=== PATIENT | male | born 1965 ===

== ENCOUNTER 2018-04-14 17:44 | Emergency (ER) | payer OTHER, SELFPAY ==
[2018-04-14] MEDS ORDERED: Absorbable Gelatin Sponge Size 12-7 ONE (18:10)
--- NOTE | 2018-04-14 18:40 | ED PDOC ---
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 Patient states he was in the shower when it happened and is concerned that he lost a significant amount of blood. He denies dizziness, weakness, syncope, pain to legs, falls, prior history of bleeding issues, or any other medical complaints. PMD: none provided Past Medical History Reviewed: Historical Data, Nursing Documentation, Vital Signs Vital Signs: Last Vital Signs Temp 99.2 F 04/14/18 17:46 Pulse 101 H 04/14/18 17:46 Resp 18 04/14/18 17:46 BP 125/87 04/14/18 17:46 Pulse Ox 98 04/14/18 18:46 - Medical History PMH: No Chronic Diseases - Surgical History Surgical History: No Surg Hx - Family History Family History: States: Unknown Family Hx - Allergies Allergies/Adverse Reactions: Allergies Allergy/AdvReac Type Severity Reaction Status Date / Time No Known Allergies Allergy Verified 04/14/18 17:46 Review of Systems ROS Statement: Except As Marked, All Systems Reviewed And Found Negative Cardiovascular: Negative for: Chest Pain Respiratory: Negative for: Shortness of Breath Musculoskeletal: Positive for: Other (varicose vein break). Negative for: Leg Pain Skin: Negative for: Rash Neurological: Positive for: Other (no syncope). Negative for: Weakness, Dizziness Physical Exam - Reviewed Nursing Documentation Reviewed: Yes Vital Signs Reviewed: Yes - Physical Exam Appears: Positive for: Well Skin: Positive for: Normal Color, Warm, Dry. Negative for: Pallor Eye Exam: Positive for: Normal appearance Cardiovascular/Chest: Positive for: Regular Rate, Rhythm. Negative for: Murmur , Tachycardia Respiratory: Positive for: Normal Breath Sounds. Negative for: Respiratory Distress Gastrointestinal/Abdominal: Positive for: Normal Exam, Soft. Negative for: Tenderness Extremity: Positive for: Normal ROM (upper and lower), Other (left leg posterior thigh small varicosities superficial, no active bleeding, some dry blood to calf and knee, patient requesting blood work due to fear of blood loss) . Negative for: Pedal Edema, Deformity Neurologic/Psych: Positive for: Alert, Oriented (x3), Other (patient is able to move all extremities, speech is clear) - Laboratory Results Result Diagrams: 04/14/18 18:45 04/14/18 18:45 - ECG O2 Sat by Pulse Oximetry: 98 (RA) Pulse Ox Interpretation: Normal Medical Decision Making Medical Decision Making: Time: 1817 --Get CBC to reassure patient, surgical placed on varicosities. Monitor bleeding for 45 min and provide reassurance. Time: 1909 --Patient reevaluated, no active bleeding, hemoglobin is normal. Patient will keep yulia bandage on overnight and remove in the morning. Precautions necessary for varicose veins were discussed at length with patient. Scribe Attestation: Documented by Keesha Pleitez, acting as a scribe for Joel Jennings III, DO Provider Scribe Attestation: All medical record entries made by the Scribe were at my direction and personally dictated by me. I have reviewed the chart and agree that the record accurately reflects my personal performance of the history, physical exam, medical decision making, and the department course for this patient. I have also personally directed, reviewed, and agree with the discharge instructions and disposition Disposition - Clinical Impression Clinical Impression: Bleeding from varicose vein - Disposition Referrals: [facility] [Outside] Disposition Time: 19:15 Condition: IMPROVED Additional Instructions: Do not take motrin, alleve, ibuprofen or aspirin for next 5 days. Use tramadol for back pain if needed. Avoid trauma or scrubbing the areas of your varicose veins. See surgeon for followup and definitive care. If bleeding returns, elevate leg and apply pressure for 20minutes. If bleeding persists return to ER. Instructions: Treatment of Varicose Veins of the Leg Forms: [employer] (Lithuanian) Print Language: ENGLISH
[2018-04-14 18:56] LABS: BASO % 0.7 % (0.0-2.0); EOS # 0.2 K/uL (0.0-0.7); EOS % 2.9 % (0.0-4.0); HEMOGLOBIN 13.7 g/dL (12.0-18.0); LYMPH # 2.3 K/uL (1.0-4.3); LYMPH % 36.2 % (20.0-40.0); MEAN CELL VOLUME 94.5 fl (80.0-94.0); MEAN CORPUSCULAR HEMOGLOBIN 32.2 pg (27.0-31.0); MONO # 0.6 K/uL (0.0-0.8); MONO % 9.1 % (0.0-10.0); NEUT # 3.3 K/uL (1.8-7.0); NEUT % 51.1 % (50.0-75.0); NRBC % 0.1 % (0.0-0.0); RBC 4.28 Mil/uL (4.40-5.90); RED CELL DISTRIBUTION WIDTH 13.9 % (11.5-14.5); WHITE BLOOD COUNT 6.4 K/uL (4.8-10.8)
[2018-04-14 18:58] LABS: BLOOD UREA NITROGEN 16 mg/dl (9-20); CALCIUM 9.2 mg/dL (8.4-10.2); GFR NON-AFRICAN AMERICAN > 60
[2018-04-14 19:46] VITALS: BP 137/93; PULSE 84; RESP 16; TEMP 98.1; O2SAT 96
== END 2018-04-14 20:12 | disposition home or self-care (01) ==
LOC: H.ER 17:44
DX: S85.9 Injury of unspecified blood vessel at lower leg level (principal); Y93.E1 Activity, personal bathing and showering

== ENCOUNTER 2018-06-11 11:01 | Emergency (ER) | payer OTHER, SELFPAY ==
[2018-06-11 11:23] VITALS: BMI 40.1
[2018-06-11 11:24] VITALS: BP 125/85; PULSE 80; RESP 20; TEMP 98.2; O2SAT 98
--- NOTE | 2018-06-11 12:41 | ED PDOC ---
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 Pt has had pain in his knees for a long time. Additionally, for the past two days, pt also notes intermittent swelling to the knee and lower leg. Pt is expressing concern over his varicose veins. No recent immobilization/travel/surgery or history of malignancy. Otherwise, denies hx of blood clots, fever, chills, redness, bruising, weakness, numbness, paresthesias, urinary symptoms, back pain. PMD: none provided Past Medical History Reviewed: Historical Data, Nursing Documentation, Vital Signs Vital Signs: Last Vital Signs Temp 98.2 F 06/11/18 11:23 Pulse 80 06/11/18 11:23 Resp 20 06/11/18 11:23 BP 125/85 06/11/18 11:23 Pulse Ox 98 06/11/18 11:23 - Medical History PMH: Denies: Chronic Kidney Disease Other PMH: varicose veins - Surgical History Surgical History: No Surg Hx - Family History Family History: States: Unknown Family Hx - Social History Current smoker - smoking cessation education provided: No Alcohol: Social Drugs: Denies - Home Medications Home Medications: Ambulatory Orders Medication Instructions Recorded Naproxen 500 mg PO Q12H PRN #30 tablet 06/11/18 - Allergies Allergies/Adverse Reactions: Allergies Allergy/AdvReac Type Severity Reaction Status Date / Time No Known Allergies Allergy Verified 06/11/18 11:42 Review of Systems ROS Statement: Except As Marked, All Systems Reviewed And Found Negative Constitutional: Negative for: Fever, Chills Cardiovascular: Negative for: Chest Pain, Palpitations Respiratory: Negative for: Cough Gastrointestinal: Negative for: Nausea, Vomiting, Abdominal Pain Genitourinary Male: Negative for: Dysuria, Frequency Musculoskeletal: Positive for: Leg Pain (right knee radiating up into hip). Negative for: Neck Pain, Shoulder Pain, Arm Pain Skin: Positive for: Other (varicose veins bilateral lower extremities). Negative for: Rash Neurological: Negative for: Weakness, Numbness, Headache, Dizziness Physical Exam - Reviewed Nursing Documentation Reviewed: Yes Vital Signs Reviewed: Yes - Physical Exam Appears: Positive for: Well, Non-toxic, No Acute Distress Head Exam: Positive for: ATRAUMATIC, NORMOCEPHALIC Skin: Positive for: Normal Color, Warm, Dry Eye Exam: Positive for: Normal appearance Cardiovascular/Chest: Positive for: Regular Rate, Rhythm Respiratory: Positive for: Normal Breath Sounds. Negative for: Accessory Muscle Use, Respiratory Distress Pulses-Dorsalis Pedis (L): 2+ Pulses-Dorsalis Pedis (R): 2+ Back: Positive for: Normal Inspection. Negative for: L CVA Tenderness, R CVA Tenderness, Vertebral Tenderness, Muscle Spasm Extremity: Positive for: Normal ROM, Tenderness (to right leg knee over the medial and lateral joint lines and the popliteal fossa), Capillary Refill (<2s), Other (bilat inspection LE: varicose veins present; left leg normal). Negative for: Pedal Edema, Calf Tenderness, Deformity, Swelling Neurologic/Psych: Positive for: Alert, Oriented (x3), Gait (steady). Negative for: Motor/Sensory Deficits - ECG O2 Sat by Pulse Oximetry: 98 (RA) Pulse Ox Interpretation: Normal Medical Decision Making Medical Decision Making: Time: 1226 Initial Impression: right leg pain, r/o DVT Initial Plan: --Right knee XR --Toradol 60mg IM --Right LE US duplex Venous Duplex: Negative for DVT Right Knee XR: Negative Pt reports decreased pain after medication. Plan of care discussed with patient, and strict instructions given regarding prescriptions given, importance of follow up, and signs to return to Emergency Department, to include numbness, paresthesias, weakness, worsening pain or any other new/worsening symptoms. Patient verbalizes understanding of discussion. Patient A&Ox3, ambulating with steady gait, stable for discharge home. Impression: Knee Pain Plan: * Naproxen * Orthopedic Followup * Followup with primary doctor/clinic within 2 days * Return to ER for new/worsening symptoms Scribe Attestation: Documented by Jess Johnson, acting as a scribe for Sydney Brooks PA-C Provider Scribe Attestation: All medical record entries made by the Scribe were at my direction and personally dictated by me. I have reviewed the chart and agree that the record accurately reflects my personal performance of the history, physical exam, medical decision making, and the department course for this patient. I have also personally directed, reviewed, and agree with the discharge instructions and disposition. Disposition - Clinical Impression Clinical Impression: Knee pain - Patient ED Disposition Is Patient to be Admitted: No - Disposition Referrals: Ambrosio Weston III, MD [Staff Provider] - Disposition: Routine/Home Disposition Time: 14:00 Condition: IMPROVED Additional Instructions: Flat naproxeno cada 12 horas segn sea necesario para el dolor. Mantener la pierna comprimida en el vendaje EDITH Seguimiento con orto para el dolor persistente. Seguimiento con mdico primario o clnica dentro de 2 howard. Volver a la chiquis de emergencias para los sntomas nuevos / que empeoran Prescriptions: Naproxen 500 mg PO Q12H PRN #30 tablet PRN Reason: Pain, Mild (1-3) Forms: [employer] (Bermudian), [facility] ED School/Work Excuse Print Language: SPA
--- NOTE | 2018-06-11 13:38 | US ---
Date of service: 06/11/2018 PROCEDURE: Right lower extremity venous duplex Doppler. HISTORY: lower leg swelling and pain, h/o malignancy COMPARISON: None available. TECHNIQUE: Common femoral, superficial femoral, popliteal and posterior tibial veins were evaluated. Flow was assessed with color Doppler, compressibility, assessment of phasic flow and augmentation response. FINDINGS: COMMON FEMORAL VEIN: Unremarkable. SUPERFICIAL FEMORAL VEIN: Unremarkable. POPLITEAL VEIN: Unremarkable. POSTERIOR TIBIAL VEIN: Unremarkable. OTHER FINDINGS: None. IMPRESSION: No evidence of deep venous thrombosis in the right lower extremity.
--- NOTE | 2018-06-11 14:16 | RAD ---
PROCEDURE: Right Knee Radiographs. HISTORY: Right knee pain COMPARISON: No prior. FINDINGS: BONES: No acute displaced fracture. JOINTS: No dislocation. JOINT EFFUSION: No significant joint effusion. OTHER FINDINGS: None. IMPRESSION: No acute displaced fracture, dislocation, or significant joint effusion identified. If symptoms persist, or if there is continued clinical concern, x-ray follow-up in 7-10 days should be considered.
== END 2018-06-11 15:24 | disposition home or self-care (01) ==
LOC: H.ER 11:01
DX: M25.569 Pain in unspecified knee (principal)
CPT/HCPCS: 73562; 93971; 96372; 99284; J1885